=== PATIENT | female | born 1960 | race Two or more races ===

== ENCOUNTER 2019-11-10 04:53 | Emergency (ER) | payer OTHER ==
[~2019-11-10] VITALS: Ht 165.1 cm; Wt 90.7 kg
[2019-11-10] MEDS ORDERED: LOSARTAN POTAS100 MG (05:21)
[2019-11-10] MEDS ORDERED: PLAVIX75 MG (05:22)
[2019-11-10] MEDS ORDERED: HUMALOG100 UNIT/2 (05:22)
[2019-11-10] MEDS ORDERED: IBU800 MG (05:22)
[2019-11-10] MEDS ORDERED: ASPIR 8181 MG (05:23)
[2019-11-10] MEDS ORDERED: LANTUS SOL100 UNIT/1 (05:23)
[2019-11-10] MEDS ORDERED: RESTORIL30 M1 (05:24)
[2019-11-10] MEDS ORDERED: TOPROL XL50 M1 (05:24)
== END 2019-11-10 12:24 | disposition home or self-care (01) ==
LOC: ER 04:53
DX: E11.649 Type 2 diabetes mellitus with hypoglycemia without coma (principal); E87.6 Hypokalemia; Z79.4 Long term (current) use of insulin